=== PATIENT | female | born 1965 | race Caucasian/White ===

== ENCOUNTER 2017-07-24 07:46 | Day surgery (SDC) | payer OTHER ==
[~2017-07-24] VITALS: Ht 162.6 cm; Wt 60.9 kg
[2017-07-24] MEDS ORDERED: CeFAZolin 1 GM/DEXTROSE 50 ML IV ONE ×2 (08:00→08:10)
[2017-07-24] MEDS ORDERED: LORazepam 2 MG/ML VIAL IVP PRN (08:00)
[2017-07-24] MEDS ORDERED: SODIUM CHLORIDE 0.9% 1,000 ML IV ONE ×3 (08:00→12:32)
[2017-07-24] MEDS ORDERED: SODIUM BICARBONATE 50 MEQ/50 ML VIAL ONE (10:15)
[2017-07-24] MEDS ORDERED: LIDOCAINE HCL/PF 1% 30 ML VIAL ONE (10:15)
[2017-07-24 10:30] VITALS: BP 138/72
[2017-07-24] MEDS ORDERED: MIDAZOLAM HCL 2 MG/2 ML VIAL ONE ×2 (10:30→11:17)
[2017-07-24] MEDS ORDERED: FentaNYL CITRATE-PF 100 MCG/2 ML VIAL ONE ×2 (10:30→11:21)
[2017-07-24] MEDS ORDERED: MIDAZOLAM HCL 2 MG/2 ML VIAL IVP ONE ×3 (10:45→11:00)
[2017-07-24] MEDS ORDERED: FentaNYL CITRATE-PF 100 MCG/2 ML VIAL IVP ONE ×3 (10:45→11:30)
[2017-07-24] MEDS ORDERED: MIDAZOLAM HCL 2 MG/2 ML VIAL IM ONE (11:00)
[2017-07-24 11:33] VITALS: BP 109/62
[2017-07-24] MEDS ORDERED: SODIUM CHLORIDE 0.9% 1,000 ML IV SCH (11:38)
[2017-07-24] MEDS ORDERED: HYDROmorphone HCL 2 MG TABLET PO ONE (11:45)
[2017-07-24] MEDS ORDERED: OxyCODONE HCL/ACETAMINOPHEN 5-325 MG TABLET PO PRN (11:45)
[2017-07-24] MEDS ORDERED: HYDROmorphone 2 MG/ML SYRINGE IVP PRN (11:45)
[2017-07-24] MEDS ORDERED: KETOROLAC TROMETHAMINE 60 MG/2 ML VIAL IM ONE ×2 (12:14→12:15)
[2017-07-24] MEDS ORDERED: HYDROmorphone 2 MG/ML SYRINGE IM ONE (12:45)
== END 2017-07-24 13:25 | disposition home or self-care (01) ==
LOC: EDBD 07:46 → SDS 07:46
PROVIDERS: ATTEND Radiology Diagnostic Radiology
DX: N63.10 Unspecified lump in the right breast, unspecified quadrant (principal); N60.01 Solitary cyst of right breast; Z85.3 Personal history of malignant neoplasm of breast; Z17.0 Estrogen receptor positive status [ER+]; Z88.6 Allergy status to analgesic agent; Z72.89 Other problems related to lifestyle; Z98.890 Other specified postprocedural states
CPT/HCPCS: 19105; 99152; 99153; C2618; J0690; J1885; J2250; J3010; J3490 ×2; J7030